=== PATIENT | male | born 2005 | race Caucasian/White ===

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

== ENCOUNTER 2023-08-26 00:32 | Emergency (ER) | payer MEDICAID ==
[~2023-08-26] VITALS: Ht 182.9 cm; Wt 97.5 kg
[2023-08-26 00:40] VITALS: BP_SYST 116; PULSE 75; RESP 16; TEMP 98.1; O2SAT 100
[2023-08-26] MEDS ORDERED: ZIT250 PO (02:09)
[2023-08-26] MEDS ORDERED: D-ME120S28 PO (02:09)
[2023-08-26] MEDS ORDERED: IBUP-1969 PO (02:09)
[2023-08-26 02:20] VITALS: BP_SYST 118; PULSE 75; RESP 18; O2SAT 97
== END 2023-08-26 02:20 | disposition home or self-care (01) ==
LOC: SED 00:32
DX: J40 Bronchitis, not specified as acute or chronic (principal); Z79.899 Other long term (current) drug therapy; Z79.2 Long term (current) use of antibiotics
CPT/HCPCS: 36415; 71045; 86403; 87081; 99284